=== PATIENT | female | born 1960 | race Caucasian/White ===

== ENCOUNTER 2021-01-19 08:15 | Day surgery (SDC) | payer BC, SELFPAY ==
[2020-12-26 12:56] VITALS: BMI 28.3
[2021-01-19] VITALS (7 sets, daily range): BP systolic 91–140; BP diastolic 53–74; PULSE 53–64; RESP 16; TEMP 36.2–36.6; O2SAT 95–99; BMI 25.2
[2021-01-19] MEDS: Lactated Ringers 1,000 ML 100 ML IV (08:57)
--- NOTE | 2021-01-19 09:21 | HP.PCM_ITS ---
History and Physical I have re-examined the patient. There are no clinical changes since date of exam. Intake Intake Visit Reasons: review EMG Allergies Penicillins Allergy (Verified 12/26/20 12:57) Rash [facility] Surgical History (Updated 12/26/20 @ 12:58 by Genie Juarez) H/O: hysterectomy (Acute) S/P trigger finger release (Acute) Family History (Updated 12/26/20 @ 12:59 by Genie Juarez) Mother Breast cancer Bone cancer Father Diabetes Brother Epilepsy Social History (Updated 01/16/21 @ 13:[address] Celeste Romo DO) household members: other details: Simon Amin, [place], Demond, Kerline, Jolly, Ivan current occupational status: employed current occupation: [employer] Smoking Status: Heavy Smoker (>10/day) Tobacco: How many years used: 49 alcohol intake: current alcohol intake frequency: a few times a week what type of physical activity do you participate in: none do you feel safe at home: Yes HPI review EMG: Surgical H&P: Yes Details: Parts of this documentation were recorded by a scribe, this documentation accurately reflects the service provided and the decisions made by me, Dr. Celeste Romo DO 01/16/21 1012. GOKUL GUEVARA is a 60 year old F here today for review of her EMG study. EMG study was performed at [facility] on 01/04/21. Patient denies any medical changes since her last office visit. right worse than left, pain and numbness and weakness worsening. Ortho Exam Right Wrist/Hand Right Wrist: Yes ROM-Extension 0-60, ROM-Flexion 0-80, ROM-Pronation 0-80, ROM- Supination 0-90 and Durken's Test; no Greer Test Motor: EPL: 5, FDP-2: 4, 1st Dorsal Interosseous: 5, APB: 4 Sensation: Radial: I, Ulnar: I, Median: D WRIST: weakness Left Wrist/Hand Left Wrist: Yes ROM-Extension 0-60, Yes ROM-Flexion 0-80, Yes ROM-Pronation 0- 80, Yes ROM-Supination 0-90 and Yes Durken's Test; no Greer Test Motor: EPL: 5, FDP-2: 5, 1st Dorsal Interosseous: 5, APB: 5 Sensation: Radial: I, Ulnar: I, Median: D WRIST: weakness Assessment & Plan Problems 1. Bilateral carpal tunnel syndrome G56.03 Plan Patient educated that she has rigth moderate to severe carpal tunnel syndrome and she has left mild to moderate carpal tunnel syndrome. Patient educated that it is recommended that she has right carpal tunnel release and left carpal tunnel injection. Reviewed the pre-operative plans with the patient. Risks and benefits of the procedure were fully explained, including but not limited to infection, neurovascular injury, continued pain, arthritis, stiffness, need for further surgery, re-injury, DVT, PE, general risks of anesthesia, and loss of limb or life. The patient understands all the risks and does wish to proceed with written consent right carpal tunnel release and left carpal tunnel injection. Follow up 2 weeks post op or sooner if pain, swelling, numbness or associated symptoms, or concerns develop. All questions answered. Patient in agreement of plan. Coding Level of Care Code Off vis,est,level 4 Diagnoses Bilateral carpal tunnel syndrome G56.03 COVID (Procedure Consent) Procedure Criteria Procedure Criteria: Yes Elective The surgeon/proceduralist and patient have discussed in detail the risk of exposure to and/or potential harm posed by the COVID-19 virus with having a surgery/procedure at this time versus the risk of? delaying the surgery/procedure. It is not possible to know either the risk of delaying the surgery or procedure or chance of getting an infection with perfect accuracy, but a joint decision was made between the patient and the surgeon/proceduralist ?to proceed at this time with the scheduled surgery/procedure as indicated on the consent form.
--- NOTE | 2021-01-19 09:21 | PCM.DC.ORTHO ---
Discharge Diet: No Restrictions - Leave dressing on until seen in postop clinic in 10-14 days for suture removal, keep dressing clean, dry, intact; change dressing if gets wet/dirty, call with concerns Discharge Activity: May Not Drive May shower in (days): 1 Ice area for (Minutes): 20 - Every hour while awake. Weight Bearing Status: Weight bearing as tolerated Keep extremity elevated above heart level: Operative Extremity Call your doctor if your incision/area has: Continuous Slow Oozing, Sudden Increased Bleeding, Increased Pain/ Swelling, Increased Redness, Foul Smelling Discharge Call your doctor if you observe: Fever of 101 or Higher, Coldness, Increased Pain, Numbness or Tingling, Change in Color, Calf discomfort Allergies/Adverse Reactions: Allergies Penicillins Allergy (Verified 01/19/21 08:49) Rash Medications to take at Discharge citalopram 20 mg tablet 20 mg PO DAILY 12/26/20 omeprazole 40 mg capsule,delayed release 40 mg PO DAILY 12/26/20 Aspirin/Acetaminophen/Caffeine [Excedrin Migraine Caplet] 2 each PO DAILY PRN 01/17/21 Ibuprofen [Advil] 200 mg PO BID 01/17/21 Orders to be completed after discharge: COVID 19 AG RAPID (RN COLLECT) Time Frame: 01/19/21, Facility: [facility], Location: Laboratory Primary Care Physician: Choco Dumont DO [Primary Care Provider] - Test Results: Test results from this visit will be discussed in further detail at your follow-up appointment, if applicable. Please Follow Up With: Celeste Romo DO - [phone]
--- NOTE | 2021-01-19 09:22 | PCM.OPRPT ---
Report of Operation Date of Procedure: 01/19/21 Pre-Operative Diagnosis: bilateral carpal tunnel syndrome Post-Operative Diagnosis: same Surgery/Procedure Performed:: right carpal tunnel release, left carpal tunnel injection blackjack supervisor: Kassandra Foster Type of Anesthesia:: Block,Alexandre, Local Anesthesiologist: Stef Monae Replaced: 400cc lr Description of Procedure: Preoperative note Patient is a 60 year old patient with nerve conduction study confirming bilateral carpal tunnel syndrome. Patient failed conservative treatment for her carpal tunnel elected proceed with right carpal tunnel release and left carpal tunnel injection. Risks benefits and alternatives surgery discussed with patient. Risks including but not limited to blood loss, blood clot, infection, neurovascular injury, failure procedure, loss of life and loss of limb. Patient is aware like proceed with above. Operative note Patient seen and examined preoperative holding area. right hand was marked. History and physical and consent reviewed. Patient was brought to the operating room placed supine on the operating table. Sign in, anesthesia, antibiotics were administered. right upper extremity was prepped and draped after Alexandre block was initiated. All bony prominences well-padded SCDs placed on bilateral lower extremities. We marked out our incisions for our carpal tunnel release at the intersection of Bobby's line in the fourth ray flexed. We extended about a centimeter and a half. Timeout was performed. We then checked ensure that the Alexandre block was working with pickups which it was not so we performed a local block of 10cc 1% lidocaine. We then used a 15 blade to make a skin incision. We then dissected down tenotomy syllable of the transverse carpal ligament. We then used a new 15 blade cut through the transverse carpal ligament down to the level of the median nerve. We then further released the median nerve the combination of the 15 blade and tenotomies. The nerve was grayish in color and adherent to the transverse carpal ligament volarly. We released the transverse carpal ligament distally to the fat pad and then proximally under standard technique. We then palpated to ensure that we released all of the transverse carpal ligament which we did. We irrigated the incision with copious amounts of sterile saline. All bleeders were coagulated. The incision was closed with interrupted 4-0 nylon stitches. Under sterile conditions, we then injected the left carpal tunnel in standard technique. Tourniquet was deflated for total working time of 15 minutes. Patient tolerated procedure well there were no complications. Patient transferred to recovery room in stable condition. Postoperative note Hospital pharmacy has prescription Leave dressing clean dry and intact Follow-up in 2 weeks Call with concerns This note was generated with [employer] dictation software. It may contain incorrect words, spelling, and punctuation that were not noted in checking the note before signing
[2021-01-19] MEDS: Bupivacaine Mpf 0.5% 30 ML VIAL (10:00)
[2021-01-19] MEDS: Lidocaine 1% (30 ml sdv) 30 ML Vial (10:00)
[2021-01-19] MEDS: Mupirocin Ointment 22gm Tube 1 APPLIC (10:09)
[2021-01-19] MEDS: Ropivacaine 0.5% 30 ML Vial (10:17)
[2021-01-19] MEDS: Triamcinolone Acetonide 40 MG/ML Vial (10:17)
== END 2021-01-19 12:30 | disposition home or self-care (01) ==
LOC: SDC 08:15 → AC 08:16
PROVIDERS: PCP Student in an Organized Health Care Education/Training Program; Referring Provider Orthopaedic Surgery; Visit Provider Orthopaedic Surgery
PROC: (CPT 64721; principal; 2021-01-19 09:25)
DX: G56.03 Carpal tunnel syndrome, bilateral upper limbs (principal); K21.9 Gastro-esophageal reflux disease without esophagitis; F32.9 Major depressive disorder, single episode, unspecified; F17.200 Nicotine dependence, unspecified, uncomplicated; Z79.899 Other long term (current) drug therapy
CPT/HCPCS: 01810; 20526; 64721; 87426; J7120; A4216